=== PATIENT | female | born 1985 | race Caucasian/White ===

== ENCOUNTER 2021-03-09 22:03 | Emergency (ER) | payer OTHER ==
[~2021-03-09] VITALS: Ht 162.6 cm; Wt 111.1 kg
[2021-03-09 22:19] VITALS: BP 194/112
[2021-03-09 22:47] LABS: BASOPHILS # (AUTO) 0.1 K/uL (0.00-0.22); BASOPHILS % (AUTO) 0.7 % (0.0-2.0); EOSINOPHILS # (AUTO) 0.1 K/uL (0-0.4); HEMATOCRIT 34.5 % (36-48); HEMOGLOBIN 10.4 g/dL (12.0-16.0); LYMPHOCYTES # (AUTO) 1.6 K/uL (2.5-16.5); LYMPHOCYTES % (AUTO) 15.5 % (20.5-51.1); MEAN CORPUSCULAR HEMOGLOBIN 20 pg (27-31); MEAN CORPUSCULAR HGB CONC 30 g/dL (33-37); MEAN CORPUSCULAR VOLUME 66.8 fL (80-94); MONOCYTES # (AUTO) 0.5 K/uL (0.8-1.0); MONOCYTES % (AUTO) 4.7 % (1.7-9.3); NEUTROPHILS # (AUTO) 8.1 K/uL (1.8-7.7); NEUTROPHILS % (AUTO) 78.1 % (42.2-75.2); PLATELET COUNT (AUTO) 326 K/uL (140-450); RED BLOOD CELL COUNT(AUTO) 5.16 MIL/uL (4.20-5.40); RED CELL DISTRIBUTION WIDTH 20.6 % (11.6-13.7); WHITE BLOOD COUNT (AUTO) 10.3 K/uL (4.8-10.8)
[2021-03-09 23:20] LABS: ALBUMIN 3.3 g/dL (3.4-5.0); ANION GAP 15.2 (8-16); CARBON DIOXIDE 26.3 mmol/L (21-32); CREATININE 1.3 mg/dL (0.6-1.3); POTASSIUM 4.5 mmol/L (3.5-5.1); TOTAL BILIRUBIN 0.4 mg/dL (0.0-1.0)
[2021-03-10 00:01] LABS: APPEARANCE,URINE SL CLOUDY (CLEAR); BILIRUBIN,URINE NEGATIVE (NEGATIVE); BLOOD, URINE 2+ (NEGATIVE); COLOR,URINE YELLOW (YELLOW); LEUKOCYTE ESTERASE ,URINE NEGATIVE (NEGATIVE); NITRITE, URINE NEGATIVE (NEGATIVE); UGLUCOSE NEGATIVE (NEGATIVE)
[2021-03-10 00:07] LABS: WBC,URINE 0-5 /HPF (0-5)
[2021-03-10] MEDS ORDERED: HYDROcodone/APAP 5/325 MG 1 TAB TAB PO ONE (00:15)
[2021-03-10] MEDS ORDERED: DOXY100C9 PO (02:59)
[2021-03-10] MEDS ORDERED: lisinopriL 20 MG TAB PO ONE (03:00)
[2021-03-10] MEDS ORDERED: LISI20TA29 PO (03:04)
[2021-03-10] MEDS ORDERED: FURO-570 PO (03:04)
[2021-03-10 03:21] VITALS: BP 189/86
== END 2021-03-10 03:21 | disposition home or self-care (01) ==
LOC: MED 22:03
DX: J18.9 Pneumonia, unspecified organism (principal); F12.90 Cannabis use, unspecified, uncomplicated
CPT/HCPCS: 36415; 71045; 80053; 81001; 82150; 83690; 84703; 85025; 87086; 93005; 99285